=== PATIENT | female | born 1980 | race Two or more races ===

== ENCOUNTER 2017-07-12 18:04 | Emergency (ER) | payer MEDICAID ==
[~2017-07-12] VITALS: Ht 154.9 cm; Wt 71.7 kg
[2017-07-12 18:15] VITALS: BP 102/51
[2017-07-12] MEDS ORDERED: IBUPROFEN 600 MG TABLET PO ONE ×2 (18:47→19:00)
--- NOTE | 2017-07-12 18:53 | NUR ---
ÁNGEL KRUSE AT BS FOR THUMB SPICA SPLINT APPLICATION.
== END 2017-07-12 18:52 | disposition home or self-care (01) ==
LOC: ER 18:05
DX: M65.4 Radial styloid tenosynovitis [de Quervain] (principal); F17.200 Nicotine dependence, unspecified, uncomplicated
CPT/HCPCS: 29125; 99283; A4606; Z7610

== ENCOUNTER 2017-10-10 18:44 | Emergency (ER) | payer MEDICAID ==
[~2017-10-10] VITALS: Ht 154.9 cm; Wt 67.1 kg
--- NOTE | 2017-10-10 19:05 | NUR ---
PT AMBULATORY TO ER BED 7. PT BIB SELF C/O ABD PAIN WITH BODY ACHES X 2 DAYS. NAUSEA, NO VOMITING. PT PLACED IN GOWN AND ON ASSEMBLER METAL BUILDING. VSS/RESP EVEN UNLABORED/NAD NOTED/SKIN WARM AND DRY/AOX4. AWAITING MD THOMPSON.
[2017-10-10] MEDS ORDERED: ONDANSETRON 4 MG TAB.RAPDIS ONE (19:23)
[2017-10-10 19:29] LABS: APPEARANCE,URINE Clear (CLEAR); BILIRUBIN,URINE Negative (NEGATIVE); BLOOD, URINE Negative Ery/uL (NEGATIVE); COLOR,URINE Orange (YELLOW); KETONES,URINE 40 (NEGATIVE); LEUKOCYTE ESTERASE ,URINE Negative (NEGATIVE); NITRITE, URINE Positive (NEGATIVE); PROTEIN,URINE 30 mg/dl (NEGATIVE); UGLUCOSE 100 MG/DL mg/dL (NEGATIVE)
[2017-10-10] MEDS ORDERED: ONDANSETRON 4 MG TAB.RAPDIS SL ONE (19:30)
[2017-10-10 19:31] LABS: BASOPHILS % (AUTO) 0.3 % (0.0-2.0); EOSINOPHILS % (AUTO) 0.3 % (0.0-6.0); HEMATOCRIT 41 % (33-45); HEMOGLOBIN 14.1 g/dL (11.5-14.8); LYMPHOCYTES # (AUTO) 0.6 /CMM (0.8-4.8); LYMPHOCYTES % (AUTO) 9.5 % (20.0-44.0); MEAN CORPUSCULAR HEMOGLOBIN 31 PG (26.0-33.0); MEAN CORPUSCULAR HGB CONC 34 g/dl (31.0-36.0); MEAN CORPUSCULAR VOLUME 89 fL (82-100); MONOCYTES # (AUTO) 0.4 /CMM (0.1-1.30); NEUTROPHILS # (AUTO) 5.7 /CMM (1.8-8.9); NEUTROPHILS % (AUTO) 83.9 % (43.0-81.0); PLATELET COUNT (AUTO) 205 /CMM (150-450); RDW COEFFICIENT OF VARIATION 11.8 (11.5-15.0); RED BLOOD CELL COUNT(AUTO) 4.64 MIL/uL (4.0-5.2); WHITE BLOOD COUNT (AUTO) 6.7 K/uL (4.3-11.0)
[2017-10-10 19:47] LABS: BACTERIA,URINE Few /HPF (None Seen); RBC,URINE 0-2 /HPF (0-2); SQUAMOUS EPITHELIAL CELL,UR Few /HPF (None Seen); WBC,URINE 0-2 /HPF (0-3)
[2017-10-10 19:52] LABS: CALCIUM, SERUM 8.6 mg/dL (8.5-10.1); CREATININE 0.6 mg/dL (0.6-1.3); POTASSIUM 3.4 mmol/L (3.5-5.1)
[2017-10-10 19:57] LABS: ALBUMIN 3.8 g/dL (3.4-5.0); BILIRUBIN,DIRECT 0.1 mg/dL (0.0-0.2); BILIRUBIN,TOTAL 0.4 mg/dL (0.2-1.0)
--- NOTE | 2017-10-10 20:17 | NUR ---
Patient discharged to home in stable condition. Written and verbal after care instructions given. Patient verbalizes understanding of instruction. Patient ambulatory with a steady gait.
[2017-10-10 20:18] VITALS: BP 100/50
== END 2017-10-10 20:19 | disposition home or self-care (01) ==
LOC: ER 18:45
DX: R81 Glycosuria (principal); R10.13 Epigastric pain; R11.0 Nausea; F17.200 Nicotine dependence, unspecified, uncomplicated
CPT/HCPCS: 36415; 80048; 80076; 81001; 82962; 83690; 84703; 85025; 87086; 99284; A4606; Q0162; Z7610; 81000-TC

== ENCOUNTER 2019-08-13 17:50 | Emergency (ER) | payer MEDICAID ==
[~2019-08-13] VITALS: Ht 157.5 cm; Wt 70.8 kg
[2019-08-13 18:04] VITALS: BP 119/72
--- NOTE | 2019-08-13 18:04 | NUR ---
"Neck pain going to R arm/legs x2day worse" PT AAOX4, -SOB, NAD NOTED, VSS, PENDING MD THOMPSON
[2019-08-13] MEDS ORDERED: CYCLOBENZAPRINE 10 MG TABLET ONE (18:27)
[2019-08-13] MEDS ORDERED: ACETAMINOPHEN ES 500 MG TABLET ONE (18:27)
[2019-08-13] MEDS ORDERED: CYCLOBENZAPRINE 10 MG TABLET PO ONE (18:30)
[2019-08-13] MEDS ORDERED: ACETAMINOPHEN 325 MG TABLET PO ONE (18:30)
--- NOTE | 2019-08-13 20:25 | NUR ---
Patient discharged to home in stable condition. Written and verbal after care instructions given. Patient verbalizes understanding of instruction
== END 2019-08-13 20:25 | disposition home or self-care (01) ==
LOC: ER 17:52
DX: M54.2 Cervicalgia (principal); R53.1 Weakness; M54.10 Radiculopathy, site unspecified; F17.200 Nicotine dependence, unspecified, uncomplicated
CPT/HCPCS: 72050-TC

== ENCOUNTER 2020-08-20 19:30 | Emergency (ER) | payer MEDICAID ==
[~2020-08-20] VITALS: Ht 154.9 cm; Wt 72.6 kg
[2020-08-20 19:30] VITALS: BP 110/58
--- NOTE | 2020-08-20 21:37 | NUR ---
CALLED LAB, AWAITING PCR COVID
--- NOTE | 2020-08-20 21:49 | NUR ---
COVID SWABBED, Patient discharged to home in stable condition. Written and verbal after care instructions given. Patient verbalizes understanding of instruction and RX.
== END 2020-08-20 21:51 | disposition home or self-care (01) ==
LOC: ER 19:33
DX: H66.92 Otitis media, unspecified, left ear (principal); Z20.828 Contact with and (suspected) exposure to other viral communicable diseases
CPT/HCPCS: 99283; C9803; U0003

== ENCOUNTER 2020-12-12 11:43 | Emergency (ER) | payer MEDICAID ==
[~2020-12-12] VITALS: Ht 157.5 cm; Wt 52.2 kg
--- NOTE | 2020-12-12 12:05 | NUR ---
CHEST PRESSURE, PALPITATION SINCE YESTERDAY. PATIENT A/OX4, BREATHING EVEN AND UNLABORED, NO SOB NOTED, NEEDS ATTENDED.
[2020-12-12] MEDS ORDERED: KETOROLAC TROMETHAMINE 15 MG/ML VIAL ONE (12:10)
--- NOTE | 2020-12-12 12:15 | NUR ---
IV LINE ESTABLISHED, BLOOD DRAWN AND SENT TO LAB.
[2020-12-12 12:17] LABS: BASOPHILS # (AUTO) 0.1 /CMM (0.0-0.2); BASOPHILS % (AUTO) 0.9 % (0.0-2.0); EOSINOPHILS % (AUTO) 2.3 % (0.0-6.0); HEMATOCRIT 41 % (33-45); HEMOGLOBIN 13.9 g/dL (11.5-14.8); LYMPHOCYTES # (AUTO) 1.5 /CMM (0.8-4.8); LYMPHOCYTES % (AUTO) 19.9 % (20.0-44.0); MEAN CORPUSCULAR HGB CONC 34 g/dl (31.0-36.0); MEAN CORPUSCULAR VOLUME 93 fL (82-100); MONOCYTES # (AUTO) 0.7 /CMM (0.1-1.30); MONOCYTES % (AUTO) 9.5 % (2.0-12.0); NEUTROPHILS # (AUTO) 4.9 /CMM (1.8-8.9); NEUTROPHILS % (AUTO) 67.4 % (43.0-81.0); PLATELET COUNT (AUTO) 227 /CMM (150-450); RED BLOOD CELL COUNT(AUTO) 4.44 MIL/uL (4.0-5.2); WHITE BLOOD COUNT (AUTO) 7.3 K/uL (4.3-11.0)
[2020-12-12 12:25] LABS: CALCIUM, SERUM 8.4 mg/dL (8.5-10.1); CARBON DIOXIDE 28 mmol/L (21-32); CHLORIDE 106 mmol/L (98-107); CREATININE 0.8 mg/dL (0.6-1.3); GLUCOSE 68 mg/dL (74-106); POTASSIUM 3.9 mmol/L (3.5-5.1); SODIUM SERUM 143 mmol/L (136-145); UREA NITROGEN, BLOOD 9 mg/dL (7-18)
[2020-12-12] MEDS ORDERED: KETOROLAC TROMETHAMINE INJ 30 MG/ML VIAL IV ONE (12:30)
[2020-12-12] MEDS ORDERED: IBUP-1955 PO (12:54)
--- NOTE | 2020-12-12 13:24 | NUR ---
PATIENT A/OX4, BREATHING EVEN AND UNLABORED, NO SOB NOTED, VSS. AMBULATORY WITH STEADY GAIT. NO DISTRESS NOTED. IV removed. Catheter intact and site benign. Pressure and 4x4 applied to site. No bleeding noted.Patient discharged to home in stable condition. Written and verbal after care instructions given. Patient verbalizes understanding of instruction.
[2020-12-12 13:25] VITALS: BP 112/68
== END 2020-12-12 13:26 | disposition home or self-care (01) ==
LOC: ER 11:46
DX: R07.89 Other chest pain (principal); R00.2 Palpitations
CPT/HCPCS: 36415; 71045; 80048; 84484; 85025; 93005 ×2; 96374; 99285; J1885

== ENCOUNTER 2021-01-08 17:23 | Emergency (ER) | payer MEDICAID ==
[~2021-01-08] VITALS: Ht 160 cm; Wt 70.3 kg
[~2021-01-08 17:23] MED LIST: IBUP-1955 PO
--- NOTE | 2021-01-08 17:40 | NUR ---
BIB SELF C/O GEN RASH STARTED THIS MORNING. C/O ITCHING. DENIES SOB. RESPIRATION REGULAR AND UNLABORED. WILL CONTINUE TO MONITOR THE PATIENT
[2021-01-08] MEDS ORDERED: DIPH50CA4 PO (17:45)
[2021-01-08] MEDS ORDERED: FAMO-131 PO (17:45)
[2021-01-08] MEDS ORDERED: PRED50TA PO (17:45)
[2021-01-08] MEDS ORDERED: diphenhydrAMINE HCL 50 MG CAPSULE ONE (17:59)
[2021-01-08] MEDS ORDERED: predniSONE 10 MG TABLET ONE (18:00)
[2021-01-08] MEDS ORDERED: predniSONE 50 MG TABLET PO ONE (18:00)
[2021-01-08] MEDS ORDERED: FAMOTIDINE (20 MG) 20 MG TABLET ONE (18:00)
[2021-01-08] MEDS ORDERED: diphenhydrAMINE HCL 25 MG CAPSULE PO ONE (18:00)
[2021-01-08] MEDS ORDERED: FAMOTIDINE (20 MG) 20 MG TABLET PO ONE (18:00)
--- NOTE | 2021-01-08 18:09 | NUR ---
Patient discharged to home in stable condition. Written and verbal after care instructions given. Patient verbalizes understanding of instruction. The patient left ER in stable condition.
[2021-01-08 18:10] VITALS: BP 112/75
[2021-01-09] MEDS ORDERED: CETI-90 PO (12:47)
== END 2021-01-08 18:10 | disposition home or self-care (01) ==
LOC: ER 17:24
DX: L50.9 Urticaria, unspecified (principal); F17.200 Nicotine dependence, unspecified, uncomplicated
CPT/HCPCS: 99284; J7512; Q0163

== ENCOUNTER 2021-01-09 12:11 | Emergency (ER) | payer MEDICAID ==
[~2021-01-09] VITALS: Ht 157.5 cm; Wt 71.2 kg
[~2021-01-09 12:11] MED LIST changes: +DIPH50CA4 PO; +FAMO-131 PO; +PRED50TA PO
--- NOTE | 2021-01-09 12:25 | NUR ---
THE PATIENT BIBS FOR C/O GENERALIZED RASH SINCE YESTERDAY. ABDOMINAL PAIN W/ NAUSEA AT 10AM. RATES ABDOMIANL PAIN 6/10. DENIES SOB. IN ROOM AIR AND RESPIRATION IS REGULAR, UNLABORED. WILL CONTINUE TO MONITOR THE PATIENT.
[2021-01-09] MEDS ORDERED: MAG HYDROX/AL HYDROX/SIMETH 30 ML UDC PO ONE (12:30)
[2021-01-09] MEDS ORDERED: FAMOTIDINE (20 MG) 20 MG TABLET PO ONE (12:30)
[2021-01-09] MEDS ORDERED: LIDOCAINE VISCOUS 2% UD 15 ML UDC MM ONE (12:30)
[2021-01-09] MEDS ORDERED: EPINEPHRINE (1:1000) MDV 30 MG/30ML VIAL SUBCUT ONE (12:30)
[2021-01-09] MEDS ORDERED: EPINEPHRINE (1:10,000) SYRINGE 1 MG/10 ML DISP.SYRIN ONE (12:31)
[2021-01-09] MEDS ORDERED: MAG HYDROX/AL HYDROX/SIMETH 30 ML UDC ONE (12:31)
[2021-01-09] MEDS ORDERED: LIDOCAINE VISCOUS 2% UD 15 ML UDC ONE (12:31)
[2021-01-09] MEDS ORDERED: FAMOTIDINE (20 MG) 20 MG TABLET ONE (12:32)
[2021-01-09] MEDS ORDERED: EPINEPHRINE (1:1000) 1 MG/ML AMPUL ONE (12:34)
[2021-01-09] MEDS ORDERED: CETI-90 PO (12:47)
--- NOTE | 2021-01-09 13:12 | NUR ---
Patient discharged to home in stable condition. Written and verbal after care instructions given. Patient verbalizes understanding of instruction. The patient left ER in stable condition.
[2021-01-09 13:13] VITALS: BP 122/70
== END 2021-01-09 13:13 | disposition home or self-care (01) ==
LOC: ER 12:12
DX: L50.9 Urticaria, unspecified (principal); F17.200 Nicotine dependence, unspecified, uncomplicated; Z79.899 Other long term (current) drug therapy
CPT/HCPCS: 96372; 99283; J0171 ×2

== ENCOUNTER 2024-10-11 08:25 | Emergency (ER) | payer MEDICAID, OTHER ==
[~2024-10-11] VITALS: Ht 157.5 cm; Wt 68.0 kg
[~2024-10-11 08:25] MED LIST changes: +CETI-90 PO
[2024-10-11 08:26] VITALS: BP 102/61; TEMP 98.6
[2024-10-11] MEDS ORDERED: ALBU18HF2 INH (08:48)
[2024-10-11] MEDS ORDERED: PROM118S5 PO (08:48)
[2024-10-11 08:57] VITALS: O2SAT 95
== END 2024-10-11 08:58 | disposition home or self-care (01) ==
LOC: ER 08:29
DX: J06.9 Acute upper respiratory infection, unspecified (principal); R05.9 Cough, unspecified; R09.81 Nasal congestion; H92.02 Otalgia, left ear; F17.210 Nicotine dependence, cigarettes, uncomplicated